=== PATIENT | male | born 1990 | race Hispanic/Latino ===

== ENCOUNTER 2020-07-19 21:20 | Emergency (ER) | payer SELFPAY ==
[~2020-07-19] VITALS: Ht 167.6 cm; Wt 90.7 kg
--- NOTE | 2020-07-19 21:42 | Emergency Department Note ---
History of Present Illnes History of Present Illness Chief Complaint: General Medicine Complaints History of Present Illness This is a 30 year old male states he feels his body is shutting down. States he has been working out in the sun. Also states he thinks he passed out about 30 minutes ago while he was laying down. Patient appears anxious. Also c/o intermittent chest pain.. Historian: Patient Arrival Mode: Car Onset (how long ago): minute(s) (30) Location: CHEST Quality: INTERMITTENT CHEST PAIN WITH BREATHING, ALSO THINKS HE PASSED OUT. Radiation: Reports non-radiation Severity: mild Onset quality: sudden Duration (how long): hour(s) (30 MINIUTS AGO) Progression: waxing and waning Chronicity: new Context: Denies recent illness, Denies recent surgery, Denies trauma/injury Relieving factors: none Exacerbating factors: none Associated symptoms: Reports chest pain (WITH INSPIRATION OCCASIONALLY), Reports other (PASSED OUT) Past Medical/Family History Physician Review I have reviewed the patient's past medical and family history. Any updates have been documented here. Past Medical History Recent Fever: No Clinical Suspicion of Infectio: No New/Unexplained Change in Ment: No Past Medical History: None Past Surgical History: None Social History Smoking Cessation: Never Smoker Alcohol Use: Occasional Any Illegal Drug Use: No Family History Family history of heart diseas: No Review of Systems Review of Systems Constitutional: Reports no symptoms EENTM: Reports no symptoms Cardiovascular: Reports as per HPI Respiratory: Reports no symptoms Gastrointestinal: Reports no symptoms Genitourinary: Reports no symptoms Musculoskeletal: Reports no symptoms Integumentary: Reports no symptoms Neurological: Reports as per HPI Psychological: Reports no symptoms Endocrine: Reports no symptoms Hematological/Lymphatic: Reports no symptoms Physical Exam Related Data Allergies: Coded Allergies: No Known Allergies (Unverified , 07/19/20) Triage Vital Signs Vital Signs Date Time Temp Pulse Resp B/P (MAP) Pulse Ox O2 Delivery O2 Flow Rate FiO2 07/19/20 21:27 98.5 92 28 140/90 100 Room Air Vital signs reviewed: Yes Physical Exam CONSTITUTIONAL Constitutional: Present well-developed, Present well-nourished, Present other (ANXIOUS) HENT HENT: Present normocephalic, Present atraumatic, Present oropharynx clear/moist, Present nose normal HENT L/R: Present left ext ear normal, Present right ext ear normal EYES Eyes: Reports PERRL, Reports conjunctivae normal NECK Neck: Present ROM normal PULMONARY Pulmonary: Present effort normal, Present breath sounds normal CARDIOVASCULAR Cardiovascular: Present regular rhythm, Present heart sounds normal, Present capillary refill normal, Present normal rate GASTROINTESTINAL Abdominal: Present soft, Present nontender, Present bowel sounds normal GENITOURINARY Genitourinary: Present exam deferred SKIN Skin: Present warm, Present dry MUSCULOSKELETAL Musculoskeletal: Present ROM normal NEUROLOGICAL Neurological: Present alert, Present oriented x 3, Present no gross motor or sensory deficits PSYCHOLOGICAL Psychological: Present mood/affect normal, Present judgement normal Results Laboratory Laboratory Laboratory Tests Test 07/20/20 01:27 07/19/20 21:36 Sodium Level 140 mmol/L (136-145) 138 mmol/L (136-145) Potassium Level 3.5 mmol/L (3.5-5.1) 2.8 mmol/L (3.5-5.1) Chloride Level 106 mmol/L (98-107) 101 mmol/L (98-107) Carbon Dioxide Level 22 mmol/L (22-29) 23 mmol/L (22-29) Anion Gap 15.5 mmol/L (8-16) 16.8 mmol/L (8-16) Blood Urea Nitrogen 11 mg/dL (7-26) 14 mg/dL (7-26) Creatinine 1.27 mg/dL (0.72-1.25) 1.55 mg/dL (0.72-1.25) Estimat Glomerular Filtration Rate > 60 ML/MIN (60-) 53 ML/MIN (60-) BUN/Creatinine Ratio 9 (6-25) 9 (6-25) Glucose Level 87 mg/dL (74-118) 106 mg/dL (74-118) Calcium Level 8.2 mg/dL (8.4-10.2) 9.0 mg/dL (8.4-10.2) White Blood Count 11.89 x10e3/uL (4.8-10.8) Red Blood Count 4.62 x10e6/uL (4.3-5.7) Hemoglobin 14.0 g/dL (14.0-18.0) Hematocrit 40.1 % (38.2-49.6) Mean Corpuscular Volume 86.8 fL (81-99) Mean Corpuscular Hemoglobin 30.3 pg (28-32) Mean Corpuscular Hemoglobin Concent 34.9 g/dL (31-35) Red Cell Distribution Width 11.9 % (11.7-14.4) Platelet Count 285 x10e3/uL (140-360) Neutrophils (%) (Auto) 59.2 % (38.7-80.0) Lymphocytes (%) (Auto) 30.2 % (18.0-39.1) Monocytes (%) (Auto) 7.7 % (4.4-11.3) Eosinophils (%) (Auto) 1.9 % (0.0-6.0) Basophils (%) (Auto) 0.7 % (0.0-1.0) Neutrophils # (Auto) 7.0 (2.1-6.9) Lymphocytes # (Auto) 3.6 (1.0-3.2) Monocytes # (Auto) 0.9 (0.2-0.8) Eosinophils # (Auto) 0.2 (0.0-0.4) Basophils # (Auto) 0.1 (0.0-0.1) Absolute Immature Granulocyte (auto 0.04 x10e3/uL (0-0.1) D-Dimer Quantitative (PE/DVT) 0.33 ug/mLFEU (0.00-0.45) Urine Color Yellow (YELLOW) Urine Clarity Clear (CLEAR) Urine pH 7 (5 - 7) Urine Specific [place] 1.020 (1.010-1.025) Urine Protein Negative (NEGATIVE) Urine Glucose (UA) Negative (NEGATIVE) Urine Ketones Negative (NEGATIVE) Urine Blood Negative (NEGATIVE) Urine Nitrite Negative (NEGATIVE) Urine Bilirubin Negative (NEGATIVE) Urine Urobilinogen 1 mg/dL (0.2 - 1) Urine Leukocyte Esterase Negative (NEGATIVE) Urine RBC None /HPF (0-5) Urine WBC None /HPF (0-5) Urine Epithelial Cells None /LPF (NONE) Urine Bacteria None /HPF (NONE) Total Bilirubin 1.0 mg/dL (0.2-1.2) Aspartate Amino Transf (AST/SGOT) 17 IU/L (5-34) Alanine Aminotransferase (ALT/SGPT) 19 IU/L (0-55) Alkaline Phosphatase 62 IU/L (40-150) Creatine Kinase 244 IU/L (30-200) Creatine Kinase MB 1.80 ng/mL (0-5.0) Troponin I 0.004 ng/mL (0-0.300) Total Protein 7.7 g/dL (6.5-8.1) Albumin 4.9 g/dL (3.5-5.0) Globulin 2.8 g/dL (2.3-3.5) Albumin/Globulin Ratio 1.8 (0.8-2.0) Urine Opiates Screen Negative (NEGATIVE) Urine Methadone Screen Negative (NEGATIVE) Urine Barbiturates Screen Negative (NEGATIVE) Urine Phencyclidine Screen Negative (NEGATIVE) Urine Amphetamines Screen Negative (NEGATIVE) Urine Methamphetamines Screen Negative (NEGATIVE) Urine Benzodiazepines Screen Negative (NEGATIVE) Urine Cocaine Screen Negative (NEGATIVE) Urine Cannabinoids Screen Negative (NEGATIVE) Laboratory Tests Test 07/19/20 21:36 White Blood Count 11.89 x10e3/uL (4.8-10.8) Red Blood Count 4.62 x10e6/uL (4.3-5.7) Hemoglobin 14.0 g/dL (14.0-18.0) Hematocrit 40.1 % (38.2-49.6) Mean Corpuscular Volume 86.8 fL (81-99) Mean Corpuscular Hemoglobin 30.3 pg (28-32) Mean Corpuscular Hemoglobin Concent 34.9 g/dL (31-35) Red Cell Distribution Width 11.9 % (11.7-14.4) Platelet Count 285 x10e3/uL (140-360) Neutrophils (%) (Auto) 59.2 % (38.7-80.0) Lymphocytes (%) (Auto) 30.2 % (18.0-39.1) Monocytes (%) (Auto) 7.7 % (4.4-11.3) Eosinophils (%) (Auto) 1.9 % (0.0-6.0) Basophils (%) (Auto) 0.7 % (0.0-1.0) Neutrophils # (Auto) 7.0 (2.1-6.9) Lymphocytes # (Auto) 3.6 (1.0-3.2) Monocytes # (Auto) 0.9 (0.2-0.8) Eosinophils # (Auto) 0.2 (0.0-0.4) Basophils # (Auto) 0.1 (0.0-0.1) Absolute Immature Granulocyte (auto 0.04 x10e3/uL (0-0.1) D-Dimer Quantitative (PE/DVT) 0.33 ug/mLFEU (0.00-0.45) Urine Color Yellow (YELLOW) Urine Clarity Clear (CLEAR) Urine pH 7 (5 - 7) Urine Specific [place] 1.020 (1.010-1.025) Urine Protein Negative (NEGATIVE) Urine Glucose (UA) Negative (NEGATIVE) Urine Ketones Negative (NEGATIVE) Urine Blood Negative (NEGATIVE) Urine Nitrite Negative (NEGATIVE) Urine Bilirubin Negative (NEGATIVE) Urine Urobilinogen 1 mg/dL (0.2 - 1) Urine Leukocyte Esterase Negative (NEGATIVE) Urine RBC None /HPF (0-5) Urine WBC None /HPF (0-5) Urine Epithelial Cells None /LPF (NONE) Urine Bacteria None /HPF (NONE) Sodium Level 138 mmol/L (136-145) Potassium Level 2.8 mmol/L (3.5-5.1) Chloride Level 101 mmol/L (98-107) Carbon Dioxide Level 23 mmol/L (22-29) Anion Gap 16.8 mmol/L (8-16) Blood Urea Nitrogen 14 mg/dL (7-26) Creatinine 1.55 mg/dL (0.72-1.25) Estimat Glomerular Filtration Rate 53 ML/MIN (60-) BUN/Creatinine Ratio 9 (6-25) Glucose Level 106 mg/dL (74-118) Calcium Level 9.0 mg/dL (8.4-10.2) Total Bilirubin 1.0 mg/dL (0.2-1.2) Aspartate Amino Transf (AST/SGOT) 17 IU/L (5-34) Alanine Aminotransferase (ALT/SGPT) 19 IU/L (0-55) Alkaline Phosphatase 62 IU/L (40-150) Creatine Kinase 244 IU/L (30-200) Creatine Kinase MB 1.80 ng/mL (0-5.0) Troponin I 0.004 ng/mL (0-0.300) Total Protein 7.7 g/dL (6.5-8.1) Albumin 4.9 g/dL (3.5-5.0) Globulin 2.8 g/dL (2.3-3.5) Albumin/Globulin Ratio 1.8 (0.8-2.0) Urine Opiates Screen Negative (NEGATIVE) Urine Methadone Screen Negative (NEGATIVE) Urine Barbiturates Screen Negative (NEGATIVE) Urine Phencyclidine Screen Negative (NEGATIVE) Urine Amphetamines Screen Negative (NEGATIVE) Urine Methamphetamines Screen Negative (NEGATIVE) Urine Benzodiazepines Screen Negative (NEGATIVE) Urine Cocaine Screen Negative (NEGATIVE) Urine Cannabinoids Screen Negative (NEGATIVE) Lab results reviewed: Yes Imaging Imaging results reviewed: Yes Impressions Procedure: [id number] DX/CHEST SINGLE (PORTABLE) Exam Date: 07/19/20 Exam Time: 2239 REPORT STATUS: Signed EXAMINATION: CHEST SINGLE (PORTABLE) INDICATION: SYNCOPE COMPARISON: None FINDINGS: TUBES and LINES: None. LUNGS: Normal lung volumes. Lungs are clear. No consolidations. PLEURA: No pleural effusion or pneumothorax. HEART AND MEDIASTINUM: The cardiomediastinal silhouette is unremarkable. BONES AND SOFT TISSUES: No acute osseous lesion. Soft tissues are unremarkable. UPPER ABDOMEN: No free air under the diaphragm. IMPRESSION: No acute thoracic radiographic abnormality. Signed by: Ti Bowers MD on 07/19/2020 11:32 PM Dictated By: TI BOWERS MD 31 Transcribed By: PEDRO on 07/19/202331 COPY TO: JAMAL DEGROOT MD~ Procedure: [id number] CT/CT BRAIN WO Exam Date: 07/19/20 Exam Time: 2229 REPORT STATUS: Signed EXAMINATION: Head CT without contrast. HISTORY:Syncope. COMPARISON:None. TECHNIQUE: Multidetector axial images were obtained from the foramen magnum to the vertex without contrast. The images were reconstructed using brain and bone algorithms. Thin section brain images were reformatted into coronal and sagittal planes. Dose modulation, iterative reconstruction, and/or weight based adjustment of the mA/kV was utilized to reduce the radiation dose to as low as reasonably achievable. Intravenous contrast: None IMAGE QUALITY: Acceptable. FINDINGS: Skull/scalp: No lytic or blastic. lesions. No surgical changes. Parenchyma: No abnormal density. No acute hemorrhage, mass or acute major vascular territorial infarct. Arteries: No density suggestive of thrombosis. Dural sinuses: No abnormal density suggestive of thrombosis. Ventricles: No hydrocephalus or displacement. Extra-axial spaces: No abnormal density. Brain volume: Normal for age. Craniocervical junction: No mass, Chiari malformation, or basilar invagination. Sella: No mass. Paranasal/mastoid sinuses: Imaged portions unremarkable. IMPRESSION: No intracranial abnormality. Signed by: Dr. Chaya Doyle M.D. on 07/20/2020 12:16 AM Dictated By: CHAYA DOYLE MD Transcribed By: PEDRO on 07/20/2015 COPY TO: JAMAL DEGROOT MD~ Procedures 12 Lead ECG Interpretation ECG Interpretation : ECG: ECG 1 Director [place]: Interpreted by ED physician Date: Jul 19, 2020 Time: 21:31 Rhythm: sinus rhythm Rate: normal BPM: 92 QRS axis: normal Conduction: incomplete RBBB ST segments normal: Yes Other findings: no other findings Clinical Impression: non-specific ECG Assessment & Plan Medical Decision Making MDM PT WITH WEAKNESS, POSSIBLE SYNCOPE, AND OCCASIONAL CHEST PAIN WITH INSPIRATION AFTER WORKING OUTSIDE IN HEAT ALL DAY CBC, CMP, EKG, CARDIAC ENZYMES, CXR, CT BRAIN,D-DIMER, UA ORDERED TO EVAL FOR MYOCARDIAL INFARCTION, ARRHYTHMIA, INTRACRANIAL ABNORMALITY, RHABDOMYOLYSIS, DEHYDRATION, PULMONARY EMBOLISM NS I LITER IV BOLUS ORDERED PT WITH HYPOKALEMIA POT 40MEQ PO ORDERE NS WITH 20MEQ/LITER AT 500CC/ HOUR TIMES ONE LITER ORDERED Reassessment Reassessment time: 01:53 Reassessment PT FEELS MUCH BETTER AND STATES READY TO GO HOME Assessment & Plan Final Impression: (1) Hypokalemia (2) Dehydration (3) Heat exhaustion Depart Disposition: HOME, SELF-CARE Last Vital Signs Date Time Temp Pulse Resp B/P (MAP) Pulse Ox O2 Delivery O2 Flow Rate FiO2 07/19/20 21:27 98.5 92 28 140/90 100 Room Air Medications in the ED Sodium Chloride 1,000 ml @ 999 mls/hr Q1H1M ONCE IV ; Start 07/19/20 at 21:45; Stop 07/19/20 at 22:45 JAMAL DEGROOT MD Jul 19, 2020 21:42
[2020-07-19] MEDS ORDERED: SODIUM CHLORIDE 0.9% 1000ML 1,000 ML IV ONE (21:45)
[2020-07-19 21:50] LABS: BASOPHILS # (AUTO) 0.1 (0.0-0.1); BASOPHILS % 0.7 % (0.0-1.0); EOSINOPHILS # (AUTO) 0.2 (0.0-0.4); EOSINOPHILS % 1.9 % (0.0-6.0); HEMATOCRIT 40.1 % (38.2-49.6); LYMPHOCYTES # (AUTO) 3.6 (1.0-3.2); LYMPHOCYTES % 30.2 % (18.0-39.1); MEAN CORPUSCULAR HEMOGLOBIN 30.3 pg (28-32); MEAN CORPUSCULAR HGB CONC 34.9 g/dL (31-35); MEAN CORPUSCULAR VOLUME 86.8 fL (81-99); MONOCYTES # (AUTO) 0.9 (0.2-0.8); MONOCYTES % 7.7 % (4.4-11.3); NEUTROPHILS % 59.2 % (38.7-80.0); PLATELET COUNT 285 x10e3/uL (140-360); RED BLOOD COUNT 4.62 x10e6/uL (4.3-5.7); RED CELL DISTRIBUTION WIDTH 11.9 % (11.7-14.4)
[2020-07-19 22:00] LABS: AMPHETAMINES SCREEN,URINE NEGATIVE (NEGATIVE); BENZODIAZEPINES SCREEN,URINE NEGATIVE (NEGATIVE); BILIRUBIN,URINE NEGATIVE (NEGATIVE); CLARITY,URINE CLEAR (CLEAR); COLOR,URINE YELLOW (YELLOW); KETONES,URINE NEGATIVE (NEGATIVE); LEUKOCYTE ESTERASE ,URINE NEGATIVE (NEGATIVE); NITRITE,URINE NEGATIVE (NEGATIVE); PHENCYCLIDINE SCREEN,URINE NEGATIVE (NEGATIVE); PROTEIN,URINE DIPSTICK NEGATIVE (NEGATIVE); URINE UROBILINOGEN 1 mg/dL (0.2 - 1)
[2020-07-19 22:07] LABS: ALBUMIN 4.9 g/dL (3.5-5.0); ALBUMIN/GLOBULIN RATIO 1.8 (0.8-2.0); ANION GAP 16.8 mmol/L (8-16); CREATININE, SERUM 1.55 mg/dL (0.72-1.25)
[2020-07-19 22:09] LABS: POTASSIUM 2.8 mmol/L (3.5-5.1)
[2020-07-19] MEDS ORDERED: POTASSIUM CHLORIDE 20 MEQ TAB CR PO STA (22:12)
[2020-07-19 22:13] LABS: CREATINE KINASE MB 1.8 ng/mL (0-5.0)
[2020-07-19] MEDS ORDERED: KCL 20MEQ/.9 SOD CHL 1,000 ML IV ONE (22:15)
--- OUTSIDE RECORDS SUMMARY | 2020-07-19 22:38 | XMS REPORT | Continuity of Care Document ---
Author Author [facility] t Organization [facility] Address [address] [place] [address] Phone Unavailable Care Team Providers Care Carpenter Form Name Role Phone Nataliia Olsen Attphys Problems This patient has no known problems. Allergies, Adverse Reactions, Alerts This patient has no known allergies or adverse reactions. Medications This patient has no known medications. Procedures This patient has no known procedures. Encounters Start Date/Time End Date/Time Encounter Type Admission Type [facility] Care Department Encounter ID Source 2019-12-28 16:30:20 2019-12-28 18:13:00 Emergency Tish Lentz [facility] [id number] Results This patient has no known results.
--- NOTE | 2020-07-19 23:35 | Diagnostic Imaging Report ---
EXAMINATION: CHEST SINGLE (PORTABLE) INDICATION: SYNCOPE COMPARISON: None FINDINGS: TUBES and LINES: None. LUNGS: Normal lung volumes. Lungs are clear. No consolidations. PLEURA: No pleural effusion or pneumothorax. HEART AND MEDIASTINUM: The cardiomediastinal silhouette is unremarkable. BONES AND SOFT TISSUES: No acute osseous lesion. Soft tissues are unremarkable. UPPER ABDOMEN: No free air under the diaphragm. IMPRESSION: No acute thoracic radiographic abnormality. Signed by: Elian Costello MD on 07/19/2020 11:32 PM
--- NOTE | 2020-07-20 00:19 | Diagnostic Imaging Report ---
EXAMINATION: Head CT without contrast. HISTORY:Syncope. COMPARISON:None. TECHNIQUE: Multidetector axial images were obtained from the foramen magnum to the vertex without contrast. The images were reconstructed using brain and bone algorithms. Thin section brain images were reformatted into coronal and sagittal planes. Dose modulation, iterative reconstruction, and/or weight based adjustment of the mA/kV was utilized to reduce the radiation dose to as low as reasonably achievable. Intravenous contrast: None IMAGE QUALITY: Acceptable. FINDINGS: Skull/scalp: No lytic or blastic. lesions. No surgical changes. Parenchyma: No abnormal density. No acute hemorrhage, mass or acute major vascular territorial infarct. Arteries: No density suggestive of thrombosis. Dural sinuses: No abnormal density suggestive of thrombosis. Ventricles: No hydrocephalus or displacement. Extra-axial spaces: No abnormal density. Brain volume: Normal for age. Craniocervical junction: No mass, Chiari malformation, or basilar invagination. Sella: No mass. Paranasal/mastoid sinuses: Imaged portions unremarkable. IMPRESSION: No intracranial abnormality. Signed by: Dr. Chaya Doyle M.D. on 07/20/2020 12:16 AM
[2020-07-20 01:51] LABS: ANION GAP 15.5 mmol/L (8-16); BLOOD UREA NITROGEN 11 mg/dL (7-26); BUN/CREATININE RATIO 9 (6-25); CALCIUM 8.2 mg/dL (8.4-10.2); CARBON DIOXIDE 22 mmol/L (22-29); CHLORIDE 106 mmol/L (98-107); CREATININE, SERUM 1.27 mg/dL (0.72-1.25); EST GLOMERULAR FILTRATION RATE > 60 ML/MIN (60-); GLUCOSE 87 mg/dL (74-118); POTASSIUM 3.5 mmol/L (3.5-5.1); SODIUM 140 mmol/L (136-145)
[2020-07-20 01:55] VITALS: BP 125/83
== END 2020-07-20 02:00 | disposition home or self-care (01) ==
LOC: ER 21:50
DX: T67.5XXA Heat exhaustion, unspecified, initial encounter (principal); E87.6 Hypokalemia; E86.0 Dehydration
CPT/HCPCS: 36415; 70450; 71045; 80048; 80053; 80307; 81001; 82550; 82553; 84484; 85025; 85379; 93005; 99283; J7030

== ENCOUNTER 2020-07-31 11:31 | Emergency (ER) | payer SELFPAY ==
[~2020-07-31] VITALS: Ht 167.6 cm; Wt 90.7 kg
--- OUTSIDE RECORDS SUMMARY | 2020-07-31 11:54 | XMS REPORT | Continuity of Care Document ---
Author Author [facility] t Organization [facility] Address [address] [place] [address] Phone Unavailable Care Team Providers Care Assembly Worker Name Role Phone NO, PCP PCP Unavailable Arpit DEGROOT Attphys Unavailable Nataliia Olsen Attphys Problems Condition Name Condition Details Condition Category Status Onset Date Resolution Date Last Treatment Date Treating Clinician Comments Source Hypokalemia Problem Active [facility] Dehydration Problem Active [facility] Heat exhaustion Problem Active [facility] Allergies, Adverse Reactions, Alerts This patient has no known allergies or adverse reactions. Social History Social Habit Start Date Stop Date Quantity Comments Source Sex Assigned At 1990 00:00:00 1990 00:00:00 Male [facility] Medications This patient has no known medications. Vital Signs Vital Name Observation Time Observation Value Comments Source Weight 2020-07-19 21:27:00 200 [lb_av] [facility] BMI (Body Mass Index) 2020-07-19 21:27:00 32.3 kg/m2 [facility] Procedures Procedure Date / Time Performed Performing Clinician Sourc e Computed tomography of brain without radiopaque contrast 2020-07 00:00:00 [facility] Plan of Care Planned Activity Planned Date Details Comments Source Instructions Dehydration - Adult [facility] Instructions Heat Exhaustion - Adult [facility] Instructions Hypokalemia [facility] Encounters Start Date/Time End Date/Time Encounter Type Admission Type Attendi ng Clinicians Care Facility Care Department Encounter ID Source 2020-07-19 21:50:00 2020-07-20 02:00:00 Departed Emergency Room 1 JAMAL DEGROOT [facility] [id number] [facility] 2019-12-28 16:30:20 2019-12-28 18:13:00 Emergency Tish Lentz [facility] [id number] Results Test Description Test Time Test Comments Results Result Comments Source Serum or plasma sodium measurement (moles/volume) 2020-07-20 01:27:00 Test Item Sodium Level (test code = 2951-2) 140 136-145 [facility] potassium [facility] (moles/volume)2020-07-20 01:27:00* Test Item Value Reference Range Interpretation Comments Potassium Level (test code = 2823-3) 3.5 3.5-5.1 [facility] chloride measurement (moles/volume)2020-07-20 01:27:00* Test Item Value Reference Range Interpretation Comments Chloride Level (test code = 2075-0) 106 98-107 [facility] plasma carbon dioxide, total measurement (moles/volume)2020-07-20 01:27:00* Test Item Value Reference Range Interpretation Comments Carbon Dioxide Level (test code = 2028-9) 22 22-29 [facility] anion gbg7359-28-10 01:27:00* Test Item Value Reference Range Interpretation Comments Anion Gap (test code = 20323-7) 15.5 8-16 [facility] urea nitrogen measurement (mass/volume)2020-07-20 01:27:00* Test Item Value Reference Range Interpretation Comments Blood Urea Nitrogen (test code = 3094-0) 11 7-26 [facility] creatinine measurement (mass/volume)2020-07-20 01:27:00* Test Item Value Reference Range Interpretation Comments Creatinine (test code = 2160-0) 1.27 0.72-1.25 [facility] plasma urea nitrogen/creatinine mass [id number] 01:27:00* Test Item Value Reference Range Interpretation Comments BUN/Creatinine Ratio (test code = 3097-3) 9 6-25 [facility] Center[facility]ated glomerular filtration rate (GFR) fxdzfwshffmuy8710-63-91 01:27:00* Test Item Value Reference Range Interpretation Comments Estimat Glomerular Filtration Rate (test code = 452130814) > 60 >60 Ranges were taken from the National Kidney Disease Education Program and the [facility] literature.Reference ranges:60 or greater: Bubpko46-69 ( for 3 consecutive months): Chronic kidney disease 15 or less: Kidney failureSaint Mark's Medical CenterGlucose tsrmrtgpyhq3271-23-80 01:27:00* Test Item Value Reference Range Interpretation Comments Glucose Level (test code = FVJ6620) 87 74-118 [facility] plasma calcium measurement (mass/volume)2020-07-20 01:27:00* Test Item Value Reference Range Interpretation Comments Calcium Level (test code = 60744-5) 8.2 8.4-10.2 [facility] CenterCT BRAIN [id number] 00:10:00 [facility] [address] [address] Patient Name: GUILLERMO TORRE MR #: [id number] : 1990 Age/Sex: 30/M Req #: [id number] Adm Physician: Ordered by: JAMAL DEGROOT MD Report #: [id number] Location: ER Room/Bed: Procedure: CT/CT BR AIMark WO Exam Date: 07/19/20 Exam Time: 2230 REPORT STATUS: Signed EXAMINATION: Head C T without contrast. HISTORY:Syncope. COMPARISON:None. TECHNIQUE : Multidetector axial images were obtained from the foramen magnum to the vert ex without contrast. The images were reconstructed using brain and bone algori thms. Thin section brain images were reformatted into coronal and sagittal pl anes. Dose modulation, iterative reconstruction, and/or weight based adjustmen t of the mA/kV was utilized to reduce the radiation dose to as low as reasonab ly achievable. Intravenous contrast: None IMAGE QUALITY: Acceptabl e. FINDINGS: Skull/scalp: No lytic or blastic. lesions. No surgical changes. Parenchyma: No abnormal density. No acute hemorrhage, mass or a cute major vascular territorial infarct. Arteries: No density suggestive o f thrombosis. Dural sinuses: No abnormal density suggestive of thrombos is. Ventricles: No hydrocephalus or displacement. Extra-axial space s: No abnormal density. Brain volume: Normal for age. Craniocervic al junction: No mass, Chiari malformation, or basilar invagination. Sell a: No mass. Paranasal/mastoid sinuses: Imaged portions unremarkable. IMPRESSION: No intracranial abnormality. Signed by: Dr. Chaya varela M.D. on 07/20/2020 12:16 AM Dictated By: CHAYA KENT MD [facility] Signed By: CHAYA KENT MD on 07/20/2015 Transcribed By: PEDRO on 07/20/2015 COPY TO: JAMAL DEGROOT MD CHEST SINGLE (PORTABLE)2020-07-19 23:31:[address] [address] Patient Name: GUILLERMO TORRE MR #: [id number] : 1990 Age/Sex: 30/M Req #: [id number] Adm Physician: Ordered by: JAMAL DEGROOT MD Report #: [id number] Location: ER Room/Bed: Procedure: [id number] DX/CHEST SINGLE (PORTABLE) Exam Date: 07/19/20 Exam Time: 22 40 REPORT STATUS: Signed EXAMINA TION: CHEST SINGLE (PORTABLE) INDICATION: SYNCOPE COMPARISON: No ne FINDINGS: TUBES and LINES: None. LUNGS: Normal lung volumes. Lungs are clear. No consolidations. PLEURA: No pleural effusio n or pneumothorax. HEART AND MEDIASTINUM: The cardiomediastinal silhouette is unremarkable. BONES AND SOFT TISSUES: No acute osseous lesion. So ft tissues are unremarkable. UPPER ABDOMEN: No free air under the diaphra gm. IMPRESSION: No acute thoracic radiographic abnormality. Signed by: Ti Bowers MD on 07/19/2020 11:32 PM Dictated By: TI BOWERS MD 30 Transcr ibed By: PEDRO on 07/19/20 233 COPY TO: JAMAL DEGROOT MD Blood leukocytes automated count (number/volume)2020-07-19 21:36:00* Test Item Value Reference Range Interpretation Comments White Blood Count (test code = 6690-2) 11.89 4.8-10.8 [facility] erythrocytes automated count (number/volume)2020-07-19 21:36:00* Test Item Value Reference Range Interpretation Comments Red Blood Count (test code = 789-8) 4.62 4.3-5.7 [facility] CenterBlood hemoglobin measurement (moles/volume)2020-07-19 21:36:00* Test Item Value Reference Range Interpretation Comments Hemoglobin (test code = 79031-1) 14.0 14.0-18.0 [facility] CenterAutomated blood hematocrit (volume fraction)2020-07-19 21:36:00* Test Item Value Reference Range Interpretation Comments Hematocrit (test code = 4544-3) 40.1 38.2-49.6 [facility] CenterAutomated erythrocyte mean corpuscular dszqui1196-79-01 21:36:00* Test Item Value Reference Range Interpretation Comments Mean Corpuscular Volume (test code = 787-2) 86.8 81-99 [facility] CenterAutomated erythrocyte mean corpuscular hemoglobin (mass per erythrocyte)2020-07-19 21:36:00* Test Item Value Reference Range Interpretation Comments Mean Corpuscular Hemoglobin (test code = 785-6) 30.3 28-32 [facility] CenterAutomated erythrocyte mean corpuscular hemoglobin concentration measurement (mass/volume)2020-07-19 21:36:00* Test Item Value Reference Range Interpretation Comments Mean Corpuscular Hemoglobin Concent (test code = 786-4) 34.9 31-35 [facility] CenterRDW QkmSh-Sqx5440-66-16 21:36:00* Test Item Value Reference Range Interpretation Comments Red Cell Distribution Width (test code = 50486-3) 11.9 11.7 -14.4 [facility] CenterAutomated blood platelet count (count/volume)2020-07-19 21:36:00* Test Item Value Reference Range Interpretation Comments Platelet Count (test code = 777-3) 285 140-360 [facility] CenterAutomated blood segmented neutrophil count as percentage of total pmdfeeuywm9693-89-30 21:36:00* Test Item Value Reference Range Interpretation Comments Neutrophils (%) (Auto) (test code = 17142-8) 59.2 38.7-80.0 [facility] CenterAutomated blood lymphocyte count as percentage ot total tifsjaefls3502-57-72 21:36:00* Test Item Value Reference Range Interpretation Comments Lymphocytes (%) (Auto) (test code = 736-9) 30.2 18.0-39.1 [facility] CenterAutomated blood monocyte count as percentage of total xjdsfoyjcf6779-08-05 21:36:00* Test Item Value Reference Range Interpretation Comments Monocytes (%) (Auto) (test code = 5905-5) 7.7 4.4-11.3 [facility] CenterAutomated blood eosinophil count as percentage of total vfgijqemdn3365-13-99 21:36:00* Test Item Value Reference Range Interpretation Comments Eosinophils (%) (Auto) (test code = 713-8) 1.9 0.0-6.0 [facility] CenterAutomated blood basophil count as percentage of total kmwsybmzng6515-62-14 21:36:00* Test Item Value Reference Range Interpretation Comments Basophils (%) (Auto) (test code = 706-2) 0.7 0.0-1.0 [facility] CenterFluoroscopic procedure less than one hour ozhjbnzq3953-33-96 21:36:00* Test Item Value Reference Range Interpretation Comments IM GRANULOCYTES % (test code = IM GRANULOCYTES %) 0.3 0.0- 1.0 [facility] CenterAutomated blood neutrophil count 2020-07-19 21:36:00* Test Item Value Reference Range Interpretation Comments Neutrophils # (Auto) (test code = 751-8) 7.0 2.1-6.9 [facility] CenterBlood lymphocytes count (number/volume) 2020-07-19 21:36:00* Test Item Value Reference Range Interpretation Comments Lymphocytes # (Auto) (test code = 92008-2) 3.6 1.0-3.2 [facility] CenterBlood monocytes automated count (number/volume)2020-07-19 21:36:00* Test Item Value Reference Range Interpretation Comments Monocytes # (Auto) (test code = 742-7) 0.9 0.2-0.8 [facility] CenterAutomated blood eosinophil count 2020-07-19 21:36:00* Test Item Value Reference Range Interpretation Comments Eosinophils # (Auto) (test code = 711-2) 0.2 0.0-0.4 [facility] CenterAutomated blood basophil count (count/volume)2020-07-19 21:36:00* Test Item Value Reference Range Interpretation Comments Basophils # (Auto) (test code = 704-7) 0.1 0.0-0.1 [facility] CenterFluoroscopic procedure less than one hour hpxqbcxb3300-50-04 21:36:00* Test Item Value Reference Range Interpretation Comments Absolute Immature Granulocyte (auto (amaya t code = Absolute Immature Granulocyte (auto) 0.04 0-0.1 [facility] CenterFibrin D-dimer DDU measurement in platelet poor plasma (mass/volume)2020-07-19 21:36:00* Test Item Value Reference Range Interpretation Comments D-Dimer Quantitative (PE/DVT) (test code = 74335-7) 0.33 0. 00-0.45 [facility] CenterUrine color euqckftdvsxrf4059-61-93 21:36:00* Test Item Value Reference Range Interpretation Comments Urine Color (test code = 5778-6) YELLOW YELLOW [facility] CenterUrine prdatqi6822-84-90 21:36:00* Test Item Value Reference Range Interpretation Comments Urine Clarity (test code = 64405-8) CLEAR CLEAR [facility] Centerpecific gravity of Urine by Test strip 2020-07-19 21:36:00* Test Item Value Reference Range Interpretation Comments Urine Specific Goessel (test code = 5811-5) 1.020 1.010-1.02 5 [facility] CenterUrine pH measurement by automated test psrkj2526-12-38 21:36:00* Test Item Value Reference Range Interpretation Comments Urine pH (test code = 77651-3) 7 5-7 [facility] CenterUrine leukocyte esterase detection by dyjaxrbj3345-59-11 21:36:00* Test Item Value Reference Range Interpretation Comments Urine Leukocyte Esterase (test code = 5799-2) NEGATIVE NEGATIVE [facility] CenterUrine nitrite zkyrqsqad4393-27-92 21:36:00* Test Item Value Reference Range Interpretation Comments Urine Nitrite (test code = 23968-7) NEGATIVE NEGATIVE [facility] CenterUrine protein measurement by test strip (mass/volume)2020-07-19 21:36:00* Test Item Value Reference Range Interpretation Comments Urine Protein (test code = 5804-0) NEGATIVE NEGATIVE [facility] CenterUrine glucose lxqnjzfig0144-84-50 21:36:00* Test Item Value Reference Range Interpretation Comments Urine Glucose (UA) (test code = 2349-9) NEGATIVE NEGATIVE [facility] CenterUrine ketones detection by automated test gifit4565-58-24 21:36:00* Test Item Value Reference Range Interpretation Comments Urine Ketones (test code = 39010-3) NEGATIVE NEGATIVE [facility] CenterUrine opiates screening ovev4060-23-66 21:36:00* Test Item Value Reference Range Interpretation Comments Urine Opiates Screen (test code = 03051-3) NEGATIVE NEGATIVE ALL TESTS PERFORMED MANUALLY ON [employer] TOX/SEE TESTSaint Mark's Medical CenterBarbiturates screen, tuppq6261-26-11 21:36:00* Test Item Value Reference Range Interpretation Comments Urine Barbiturates Screen (test code = 967822488) NEGATIVE NEGA TIVE [facility] CenterUrine phencyclidine detection by screening zdqtuy7022-59-07 21:36:00* Test Item Value Reference Range Interpretation Comments Urine Phencyclidine Screen (test code = 13387-7) NEGATIVE NEGAT GREGORY [facility] CenterUrine amphetamines detection by screen method > 1000 ng/cU6018-32-66 21:36:00* Test Item Value Reference Range Interpretation Comments Urine Amphetamines Screen (test code = 94895-0) NEGATIVE NEGATI VE [facility] CenterFluoroscopic procedure less than one hour yqapdtqy0587-86-98 21:36:00* Test Item Value Reference Range Interpretation Comments Urine Methamphetamines Screen (test code = Urine Metha mphetamines Screen) NEGATIVE NEGATIVE [facility] CenterUrine benzodiazepines detection by screening xcsdjc6764-78-16 21:36:00* Test Item Value Reference Range Interpretation Comments Urine Benzodiazepines Screen (test code = 10303-4) NEGATIVE NEG ATIVE [facility] CenterUrine cocaine measurement (mass/volume) 2020-07-19 21:36:00* Test Item Value Reference Range Interpretation Comments Urine Cocaine Screen (test code = 3398-5) NEGATIVE NEGATIVE [facility] CenterUrine cannabinoids detection by screening kbyuzt7557-43-27 21:36:00* Test Item Value Reference Range Interpretation Comments Urine Cannabinoids Screen (test code = 10526-9) NEGATIVE NEGATI VE THESE RESULTS ARE FOR MEDICAL TREATMENT ONLYTHIS REPORT CONTAINS UNCONFIR MED SCREENING RESULTS*POSITIVE RESULTS WILL BE CONFIRMED BY REFERENCE LAB UPON R EQUEST CUT-OFFDRUG CLASS CONCENTRATION ng/mLAmphetamines 1000Methamphetamines 1000Cocaine 300Opiate 300Phencyc lidine 25Cannabinoid 50Barbiturates 300Benzodiazepine 300Methadone 300[facility] CenterUrine methadone ozdsis7262-34-36 21:36:00* Test Item Value Reference Range Interpretation Comments Urine Methadone Screen (test code = 23059-8) NEGATIVE NEGATIVE THESE RESULTS ARE FOR MEDICAL TREATMENT ONLYTHIS REPORT CONTAINS UNCONFIR MED SCREENING RESULTS*POSITIVE RESULTS WILL BE CONFIRMED BY REFERENCE LAB UPON R EQUEST CUT-OFFDRUG CLASS CONCENTRATION ng/mLAmphetamines 1000Methamphetamines 1000Cocaine Metabolite 300Opiate 300Phencyc lidine 25Cannabinoid 50Barbiturates 300Benzodiazepine 300Methadone 300[facility] CenterUrine urobilinogen measurement by test strip (mass/volume)2020-07-19 21:36:00* Test Item Value Reference Range Interpretation Comments Urine Urobilinogen (test code = 37451-4) 1 0.2-1 [facility] CenterUrine total bilirubin measurement (mass/volume)2020-07-19 21:36:00* Test Item Value Reference Range Interpretation Comments Urine Bilirubin (test code = 1978-6) NEGATIVE NEGATIVE [facility] CenterUrine erythrocytes yqttfoarw0317-33-14 21:36:00* Test Item Value Reference Range Interpretation Comments Urine Blood (test code = 82511-6) NEGATIVE NEGATIVE [facility] CenterAutomated urine sediment leukocyte count by microscopy (number/high power field)2020-07-19 21:36:00* Test Item Value Reference Range Interpretation Comments Urine WBC (test code = 5821-4) NONE 0-5 [facility] CenterErythrocytes detection in urine sediment by light oczxbeuvmx4600-43-96 21:36:00* Test Item Value Reference Range Interpretation Comments Urine RBC (test code = 07567-7) NONE 0-5 [facility] CenterBacteria detection in urine sediment by light czosazhpea1313-26-46 21:36:00* Test Item Value Reference Range Interpretation Comments Urine Bacteria (test code = 78343-5) NONE NONE [facility] CenterEpithelial cells detection in urine sediment by light hbtqodrmbl6411-48-31 21:36:00* Test Item Value Reference Range Interpretation Comments Urine Epithelial Cells (test code = 32453-3) NONE NONE [facility]ererum or plasma total bilirubin measurement (mass/volume)2020-07-19 21:36:00* Test Item Value Reference Range Interpretation Comments Total Bilirubin (test code = 1975-2) 1.0 0.2-1.2 [facility] CenterFluoroscopic procedure less than one hour nenruklz9448-76-15 21:36:00* Test Item Value Reference Range Interpretation Comments Aspartate Amino Transf (AST/SGOT) (test code = Aspartate Amino Transf (AST/SGOT)) 17 5-34 [facility] Centererum or plasma alanine aminotransferase measurement (enzymatic activity/volume)2020-07-19 21:36:00* Test Item Value Reference Range Interpretation Comments Alanine Aminotransferase (ALT/SGPT) (test code = 1742-6) 19 0-55 [facility] Centererum or plasma protein measurement (mass/volume)2020-07-19 21:36:00* Test Item Value Reference Range Interpretation Comments Total Protein (test code = 2885-2) 7.7 6.5-8.1 [facility] Centererum or plasma albumin measurement (mass/volume)2020-07-19 21:36:00* Test Item Value Reference Range Interpretation Comments Albumin (test code = 1751-7) 4.9 3.5-5.0 [facility] CenterPlasma globulin measurement (mass/volume) 2020-07-19 21:36:00* Test Item Value Reference Range Interpretation Comments Globulin (test code = 82101-2) 2.8 2.3-3.5 [facility] Centererum or plasma albumin/globulin mass fcgdp8730-07-75 21:36:00* Test Item Value Reference Range Interpretation Comments Albumin/Globulin Ratio (test code = 1759-0) 1.8 0.8-2.0 [facility] Centererum or plasma alkaline phosphatase measurement (enzymatic activity/volume)2020-07-19 21:36:00* Test Item Value Reference Range Interpretation Comments Alkaline Phosphatase (test code = 6768-6) 62 40-150 [facility] Centererum or plasma creatine kinase measurement (enzymatic activity/volume)2020-07-19 21:36:00* Test Item Value Reference Range Interpretation Comments Creatine Kinase (test code = 2157-6) 244 30-200 [facility] Centererum or plasma creatine kinase MB measurement (mass/volume)2020-07-19 21:36:00* Test Item Value Reference Range Interpretation Comments Creatine Kinase MB (test code = 65328-6) 1.80 0-5.0 [facility] CenterTroponin I measurement by highly sensitive enzyme ludjkycufnx7290-36-56 21:36:00* Test Item Value Reference Range Interpretation Comments Troponin I (test code = 57636-5) 0.004 0-0.300 [facility]
--- NOTE | 2020-07-31 12:10 | Emergency Department Note ---
History of Present Illnes History of Present Illness Chief Complaint: Respiratory History of Present Illness This is a 30 year old male Chief Complaint Comment PATIENT IN FROM HOME WITH COMPLAINTS OF INTERMITTANT LEFT FLANK PAIN STARTING THIS MORNING; STATES WAS SEEN HERE FOR THE SAME THING 2 WEEKS AGO AND DIAGNOSED WITH LOW POTASSIUM AND HEAT EXHAUSTION; PATIENT RATES PAIN 05/12. Historian: Patient Arrival Mode: Car Onset (how long ago): day(s) (1) Location: L abd Quality: Sharp Radiation: Reports non-radiation Severity: moderate Onset quality: gradual Duration (how long): day(s) (1) Timing of current episode: constant Progression: unchanged Chronicity: new Context: Denies recent illness, Denies recent surgery Relieving factors: none Exacerbating factors: none Associated symptoms: Reports denies other symptoms Treatments prior to arrival: none Past Medical/Family History Physician Review I have reviewed the patient's past medical and family history. Any updates have been documented here. Past Medical History Recent Fever: No Clinical Suspicion of Infectio: No New/Unexplained Change in Ment: No Past Medical History: None Past Surgical History: None Social History Physically hurt or threatened: No Review of Systems Review of Systems Constitutional: Reports no symptoms EENTM: Reports no symptoms Cardiovascular: Reports no symptoms Respiratory: Reports no symptoms Gastrointestinal: Reports abdominal pain (L abd) Genitourinary: Reports no symptoms Musculoskeletal: Reports no symptoms Integumentary: Reports no symptoms Neurological: Reports no symptoms Psychological: Reports no symptoms Endocrine: Reports no symptoms Hematological/Lymphatic: Reports no symptoms Physical Exam Related Data Allergies: Coded Allergies: No Known Allergies (Unverified , 07/19/20) Triage Vital Signs Vital Signs Date Time Temp Pulse Resp B/P (MAP) Pulse Ox O2 Delivery O2 Flow Rate FiO2 07/31/20 11:37 97.7 65 18 153/97 100 Room Air Vital signs reviewed: Yes Physical Exam CONSTITUTIONAL Constitutional: Present well-developed, Present well-nourished HENT HENT: Present normocephalic, Present atraumatic, Present oropharynx clear/moist, Present nose normal HENT L/R: Present left ext ear normal, Present right ext ear normal EYES Eyes: Reports PERRL, Reports conjunctivae normal NECK Neck: Present ROM normal PULMONARY Pulmonary: Present effort normal, Present breath sounds normal CARDIOVASCULAR Cardiovascular: Present regular rhythm, Present heart sounds normal, Present capillary refill normal, Present normal rate GASTROINTESTINAL Abdominal: Present soft, Present nontender, Present bowel sounds normal GENITOURINARY Genitourinary: Present exam deferred SKIN Skin: Present warm, Present dry MUSCULOSKELETAL Musculoskeletal: Present ROM normal NEUROLOGICAL Neurological: Present alert, Present oriented x 3, Present no gross motor or sensory deficits PSYCHOLOGICAL Psychological: Present mood/affect normal, Present judgement normal Assessment & Plan Medical Decision Making MDM 30-year-old male presents for left-sided abdominal pain. Examination shows mild tenderness to deep palpation in the left abdomen. Initial differential includes diverticulitis versus functional abdominal pain versus gas among others. Labs and CT are largely unremarkable. We'll prescribe Bentyl for home use and he will follow up with primary care doctor or return to the emergency department for new or worsening symptoms. Doubt emergent process at this time and patient is appropriate for discharge. Reassessment Reassessment time: 13:34 Reassessment Well appearing, NAD Assessment & Plan Final Impression: (1) Abdominal pain Depart Disposition: HOME, SELF-CARE Last Vital Signs Date Time Temp Pulse Resp B/P (MAP) Pulse Ox O2 Delivery O2 Flow Rate FiO2 07/31/20 12:08 67 18 133/83 100 Room Air 07/31/20 11:37 97.7 PALMA NICHOLE MD Jul 31, 2020 12:10
--- NOTE | 2020-07-31 12:11 | NUR ---
PATIENT TO ROOM 10
[2020-07-31] MEDS ORDERED: SODIUM CHLORIDE 0.9% 1000ML 1,000 ML IV SCH (12:30)
[2020-07-31] MEDS ORDERED: SODIUM CHLORIDE 0.9% 50ML 50 ML ONE (12:46)
[2020-07-31] MEDS ORDERED: DIATRIZOATE MEGL/DIATRIZOA SOD 30 ML BTL PO ONE (12:46)
[2020-07-31] MEDS ORDERED: IOPAMIDOL 370 MG/ML 200 ML INFUS..BTL INJ ONE (12:46)
[2020-07-31 12:50] LABS: BASOPHILS # (AUTO) 0.1 (0.0-0.1); BASOPHILS % 0.7 % (0.0-1.0); EOSINOPHILS # (AUTO) 0.1 (0.0-0.4); EOSINOPHILS % 1.9 % (0.0-6.0); HEMATOCRIT 43.5 % (38.2-49.6); HEMOGLOBIN 15.3 g/dL (14.0-18.0); LYMPHOCYTES # (AUTO) 1.6 (1.0-3.2); LYMPHOCYTES % 22.1 % (18.0-39.1); MEAN CORPUSCULAR HEMOGLOBIN 30.7 pg (28-32); MEAN CORPUSCULAR HGB CONC 35.2 g/dL (31-35); MEAN CORPUSCULAR VOLUME 87.2 fL (81-99); MONOCYTES # (AUTO) 0.5 (0.2-0.8); MONOCYTES % 6.7 % (4.4-11.3); NEUTROPHILS # (AUTO) 4.8 (2.1-6.9); NEUTROPHILS % 68.3 % (38.7-80.0); PLATELET COUNT 300 x10e3/uL (140-360); RED BLOOD COUNT 4.99 x10e6/uL (4.3-5.7); RED CELL DISTRIBUTION WIDTH 11.8 % (11.7-14.4)
[2020-07-31 13:01] LABS: BILIRUBIN,URINE NEGATIVE (NEGATIVE); CLARITY,URINE CLEAR (CLEAR); COLOR,URINE YELLOW (YELLOW); KETONES,URINE NEGATIVE (NEGATIVE); LEUKOCYTE ESTERASE ,URINE NEGATIVE (NEGATIVE); NITRITE,URINE NEGATIVE (NEGATIVE); PROTEIN,URINE DIPSTICK NEGATIVE (NEGATIVE); URINE UROBILINOGEN 0.2 mg/dL (0.2 - 1)
[2020-07-31 13:12] LABS: ALANINE AMINOTRANSFERASE 17 IU/L (0-55); ALBUMIN/GLOBULIN RATIO 1.8 (0.8-2.0); ALKALINE PHOSPHATASE 54 IU/L (40-150); ANION GAP 15.4 mmol/L (8-16); BACTERIA,URINE RARE /HPF; BLOOD UREA NITROGEN 13 mg/dL (7-26); BUN/CREATININE RATIO 13 (6-25); CALCIUM 9.7 mg/dL (8.4-10.2); CARBON DIOXIDE 25 mmol/L (22-29); CHLORIDE 101 mmol/L (98-107); CREATININE, SERUM 1.03 mg/dL (0.72-1.25); EST GLOMERULAR FILTRATION RATE > 60 ML/MIN (60-); GLUCOSE 98 mg/dL (74-118); POTASSIUM 3.4 mmol/L (3.5-5.1); SODIUM 138 mmol/L (136-145)
--- NOTE | 2020-07-31 14:21 | Diagnostic Imaging Report ---
EXAM: CT Abdomen and Pelvis WITH intravenous contrast INDICATION: Abdominal pain COMPARISON: Chest radiograph of 07/19/2020 TECHNIQUE: Abdomen and pelvis were scanned utilizing a multidetector helical scanner from the lung base to the pubic symphysis after administration of IV contrast. Coronal and sagittal reformations were obtained. Routine protocol was performed. Scan was performed during portal venous phase. IV CONTRAST: 100mL of Isovue 370 ORAL CONTRAST: Gastrografin RADIATION DOSE: Total DLP: 783 mGy*cm Dose modulation, iterative reconstruction, and/or weight based adjustment of the mA/kV was utilized to reduce the radiation dose to as low as reasonably achievable. FINDINGS: LOWER THORAX: Normal. HEPATOBILIARY: No focal hepatic lesions. No biliary ductal dilatation. The gallbladder appears unremarkable. SPLEEN: No splenomegaly. PANCREAS: No focal masses or ductal dilatation. ADRENALS: No adrenal nodules. KIDNEYS/URETERS: No hydronephrosis, stones, or solid mass lesions. PELVIC ORGANS/BLADDER: Unremarkable. PERITONEUM / RETROPERITONEUM: No free air or fluid. LYMPH NODES: No lymphadenopathy. VESSELS: Unremarkable. GI TRACT: No abnormal bowel thickening. No bowel obstruction. Normal appendix. BONES AND SOFT TISSUES: Unremarkable. IMPRESSION: No acute findings in the abdomen or pelvis. Signed by: Dex Ornelas MD on 07/31/2020 2:17 PM
== END 2020-07-31 15:09 | disposition home or self-care (01) ==
LOC: ER 11:50
DX: R10.32 Left lower quadrant pain (principal)
CPT/HCPCS: 36415; 74177; 80053; 81001; 83690; 85025; 99284; J7030; Q9967